=== PATIENT | male | born 2000 ===

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

== ENCOUNTER 2023-01-07 19:23 | Emergency (ER) | payer OTHER ==
[~2023-01-07] VITALS: Ht 167.6 cm; Wt 58.1 kg
== END 2023-01-07 21:44 | disposition home or self-care (01) ==
LOC: EMR PED 19:23
DX: J11.1 Influenza due to unidentified influenza virus with other respiratory manifestations (principal); Z20.822 Contact with and (suspected) exposure to COVID-19